=== PATIENT | female | born 1975 | race Two or more races ===

== ENCOUNTER 2023-11-08 15:39 | Emergency (ER) | payer OTHER ==
[~2023-11-08] VITALS: Ht 167.6 cm; Wt 65.8 kg
== END 2023-11-08 18:48 | disposition home or self-care (01) ==
LOC: ER 15:40
DX: S42.255A Nondisplaced fracture of greater tuberosity of left humerus, initial encounter for closed fracture (principal); W18.39XA Other fall on same level, initial encounter; Y93.89 Activity, other specified; Y92.012 Bathroom of single-family (private) house as the place of occurrence of the external cause; Y99.9 Unspecified external cause status